=== PATIENT | male | born 1950 | race Asian ===

== ENCOUNTER → 2017-11-18 | Outpatient (CLI) | payer OTHER ==
[~2017-11-18] MED LIST: ALLOPURINOL100 MG PO; CLINDAMYCIN HC300 MG PO; ELESTAT5 ML OU; ELIQUIS5 MG PO; GLU5 PO; HUMULIN N100 U/1 ML SC; LAC PO; LEVAQUIN750 MG PO; LOSARTAN POTASS25 M1 PO; METFORMIN ER500 M1 PO; METFORMIN HCL500 MG PO; MUCINEX600 MG PO
== END | disposition home or self-care (01) ==
LOC: US 15:25
PROC: B44HZZZ Ultrasonography of Bilateral Lower Extremity Arteries (ICD-10-PCS; principal; 2017-11-18)
DX: Z13.6 Encounter for screening for cardiovascular disorders (principal); F17.290 Nicotine dependence, other tobacco product, uncomplicated